=== PATIENT | female | born 1950 | race Caucasian/White ===

== ENCOUNTER → 2019-12-16 | Outpatient (CLI) | payer MEDICARE, OTHER ==
--- NOTE | 2019-12-16 13:54 | RAD ---
Examination: Right digital diagnostic mammogram. INDICATION: Screening recall for right breast calcifications. COMPARISON: Mammograms of 08/31/2015, 11/28/2018 and 12/05/2019 TECHNIQUE: Magnification right CC and ML views as well as a full-field right ML view were obtained with 2-D technique and reviewed with computer-aided detection. FINDINGS: Scattered fibroglandular densities. Diffuse, scattered coarse calcifications are present. The cluster of calcifications in the posterior slightly lateral right breast on magnification views appear to be coarse and dystrophic in morphology. There best seen on the magnification CC view. No associated mass or obvious architectural distortion. IMPRESSION: Probably benign calcifications in the right breast. Recommend right diagnostic mammogram in 6 months. BI-RADS Category 3 Probably benign Patient entered into a reminder system with target due date for next mammogram.
== END | disposition home or self-care (01) ==
LOC: MAMMO 12:54
PROVIDERS: ATTEND Family Medicine
DX: R92.1 Mammographic calcification found on diagnostic imaging of breast (principal)
CPT/HCPCS: 77065

== ENCOUNTER 2022-02-13 14:04 | Emergency (ER) | payer MEDICARE, OTHER ==
[~2022-02-13] VITALS: Ht 149.9 cm; Wt 56.3 kg
[2022-02-13] MEDS ORDERED: ACETAMINOPHEN 325 MG TABLET PO ONE (15:30)
[2022-02-13] MEDS ORDERED: IV NORMAL SALINE 1,000ML 1,000 ML IV SCH (15:30)
--- NOTE | 2022-02-13 15:58 | RAD ---
AP chest. HISTORY: Fever AP view was taken of the chest. Lungs are free of infiltrates. Heart is normal in size. There is no p leural effusion. IMPRESSION: 1. No acute infiltrates. Electronically signed by: Tre Vergara MD (02/13/2022 3:55 PM) [facility]
[2022-02-13 16:23] LABS: CLARITY,URINE CLOUDY; COLOR,URINE YELLOW; GLUCOSE,URINE NEG (NEG); NITRITE,URINE POS (NEG); UROBILINOGEN,URINE 0.2 mg/dL (0.2 mg/dL)
[2022-02-13 16:24] LABS: BACTERIA,URINE MOD /HPF (0-FEW); WBC,URINE TNTC /HPF (0-4)
[2022-02-13 16:48] LABS: BASO # 0.1 x10^3/uL (0.0-0.2); BASO % 0 % (0-3); EOS % 0 % (0-3); HEMATOCRIT 39.1 % (36.0-47.0); HEMOGLOBIN 13.2 g/dL (12.0-15.5); LYMPH # 2.1 x10^3/uL (1.0-4.8); LYMPH % 17 % (24-48); MEAN CORPUSCULAR HEMOGLOBIN 31 pg (25-35); MEAN CORPUSCULAR HGB CONC 34 g/dL (31-37); MEAN CORPUSCULAR VOLUME 93 fL (79-100); MONO # 1.4 x10^3/uL (0.0-1.1); MONO % 11 % (0-9); NEUT % 72 % (31-73); PLATELET COUNT 307 x10^3/uL (140-400); RED CELL DISTRIBUTION WIDTH 13.1 % (11.5-14.5); WHITE BLOOD COUNT 12.5 x10^3/uL (4.0-11.0)
[2022-02-13 16:53] LABS: CALCIUM 9.2 mg/dL (8.5-10.1); CREATININE 0.9 mg/dL (0.6-1.0); GFR 61.7; POTASSIUM 3.6 mmol/L (3.5-5.1)
[2022-02-13] MEDS ORDERED: cefTRIAXone SODIUM 1 GM VIAL ONE (17:02)
[2022-02-13 17:05] LABS: INFLUENZA A PATIENT NEGATIVE (NEGATIVE); INFLUENZA B PATIENT NEGATIVE (NEGATIVE)
[2022-02-13 17:08] LABS: ALBUMIN/GLOBULIN RATIO 0.7 (1.0-1.7); TOTAL BILIRUBIN 0.6 mg/dL (0.2-1.0); TOTAL PROTEIN 7.6 g/dL (6.4-8.2)
[2022-02-13] MEDS ORDERED: CEFP200T PO (17:39)
--- NOTE | 2022-02-13 17:39 | PHYS DOC ---
Past History Past Medical History: No Pertinent History Adult General Chief Complaint Chief Complaint: FEVER HPI HPI Patient is a 71year old female who presents with complaint of fever, headaches, and chills. The patient states that her symptoms have been present over the past 3 to 4 days. States that she started getting elevated fever and chills but denies any significant coughing or shortness of breath. The patient states she went to urgent care where she underwent COVID and influenza testing 2 days ago and this was found to be negative. She had continued fever after this encounter but notes that she has not had any chest pain, abdominal pain, dysuria, diarrhea, or vomiting. Patient states that she purchased a home urinalysis kit to test her urine and states that it did come back positive for leukoesterase. Due to continued symptoms she came to the emergency department for further evaluation. Denies any significant past medical history. Review of Systems Review of Systems Constitutional: Fever, chills [] Eyes: Denies change in visual acuity, redness, or eye pain [] HENT: Denies nasal congestion or sore throat [] Respiratory: Denies cough or shortness of breath [] Cardiovascular: Denies chest pain or edema [] GI: Denies abdominal pain, nausea, vomiting, bloody stools or diarrhea [] : Denies dysuria or hematuria [] Musculoskeletal: Denies back pain or joint pain [] Integument: Denies rash or skin lesions [] Neurologic: Headache, denies focal weakness or sensory changes [] All other systems were reviewed and found to be within normal limits, except as documented in this note. Current Medications Current Medications Current Medications Medications (Trade) Dose Ordered Sig/Elicia Start Time Stop Time Status Last Admin Dose Admin Acetaminophen (Tylenol) 650 mg 1X ONCE 02/13/22 15:30 02/13/22 15:35 DC 02/13/22 15:45 650 MG Ceftriaxone Sodium 1 gm/ Sodium Chloride 50 ml @ 100 mls/hr 1X ONCE 02/13/22 16:45 02/13/22 17:14 DC 02/13/22 17:06 100 MLS/HR Ceftriaxone Sodium (Rocephin) 1 gm STK-MED ONCE 02/13/22 17:02 02/13/22 17:02 DC Sodium Chloride 1,000 ml @ 1,000 mls/hr Q1H 02/13/22 15:30 02/13/22 16:29 DC 02/13/22 15:46 1,000 MLS/HR Allergies Allergies Allergies Coded Allergies Type Severity Reaction Last Updated Verified Sulfa (Sulfonamide Antibiotics) Allergy Unknown 02/13/22 Yes Physical Exam Physical Exam Constitutional: Alert, febrile, no acute distress. [] HENT: Normocephalic, atraumatic, bilateral external ears normal, oropharynx moist, no oral exudates, nose normal. [] Eyes: PERRLA, EOMI, conjunctiva normal, no discharge. [] Neck: Normal range of motion, no tenderness, supple, no stridor. [] Cardiovascular:Heart rate regular rhythm, no murmur [] Lungs & Thorax: Bilateral breath sounds clear to auscultation [] Abdomen: Bowel sounds normal, soft, no tenderness, no masses, no pulsatile masses. [] Skin: Warm, dry, no erythema, no rash. [] Back: No tenderness, no CVA tenderness. [] Extremities: No tenderness, no cyanosis, no clubbing, ROM intact, no edema. [] Neurologic: Alert and oriented X 3, normal motor function, normal sensory function, no focal deficits noted. [] Current Patient Data Vital Signs Temperature 101.8 F, blood pressure 147/81, heart rate 82, respirations 18, pulse oximetry 95% on room air Lab Results Laboratory Tests Test 02/13/22 15:25 02/13/22 16:00 02/13/22 16:09 Urine Collection Type Unknown Urine Color Yellow Urine Clarity Cloudy Urine pH 6.0 Urine Specific [place] 1.015 Urine Protein Trace (NEG-TRACE) Urine Glucose (UA) Neg mg/dL (NEG) Urine Ketones (Stick) Neg mg/dL (NEG) Urine Blood Mod (NEG) Urine Nitrite Pos (NEG) Urine Bilirubin Neg (NEG) Urine Urobilinogen Dipstick 0.2 mg/dL (0.2 mg/dL) Urine Leukocyte Esterase Small (NEG) Urine RBC 11-20 /HPF (0-2) Urine WBC Tntc /HPF (0-4) Urine Bacteria Mod /HPF (0-FEW) White Blood Count 12.5 x10^3/uL (4.0-11.0) H Red Blood Count 4.20 x10^6/uL (3.50-5.40) Hemoglobin 13.2 g/dL (12.0-15.5) Hematocrit 39.1 % (36.0-47.0) Mean Corpuscular Volume 93 fL (79-100) Mean Corpuscular Hemoglobin 31 pg (25-35) Mean Corpuscular Hemoglobin Concent 34 g/dL (31-37) Red Cell Distribution Width 13.1 % (11.5-14.5) Platelet Count 307 x10^3/uL (140-400) Neutrophils (%) (Auto) 72 % (31-73) Lymphocytes (%) (Auto) 17 % (24-48) L Monocytes (%) (Auto) 11 % (0-9) H Eosinophils (%) (Auto) 0 % (0-3) Basophils (%) (Auto) 0 % (0-3) Neutrophils # (Auto) 9.0 x10^3uL (1.8-7.7) H Lymphocytes # (Auto) 2.1 x10^3/uL (1.0-4.8) Monocytes # (Auto) 1.4 x10^3/uL (0.0-1.1) H Eosinophils # (Auto) 0.0 x10^3/uL (0.0-0.7) Basophils # (Auto) 0.1 x10^3/uL (0.0-0.2) Sodium Level 133 mmol/L (136-145) L Potassium Level 3.6 mmol/L (3.5-5.1) Chloride Level 96 mmol/L (98-107) L Carbon Dioxide Level 31 mmol/L (21-32) Anion Gap 6 (6-14) Blood Urea Nitrogen 16 mg/dL (7-20) Creatinine 0.9 mg/dL (0.6-1.0) Estimated GFR (Cockcroft-Gault) 61.7 BUN/Creatinine Ratio 18 (6-20) Glucose Level 97 mg/dL (70-99) Lactic Acid Level 1.1 mmol/L (0.4-2.0) Calcium Level 9.2 mg/dL (8.5-10.1) Total Bilirubin 0.6 mg/dL (0.2-1.0) Aspartate Amino Transferase (AST) 34 U/L (15-37) Alanine Aminotransferase (ALT) 68 U/L (14-59) H Alkaline Phosphatase 148 U/L (46-116) H Total Protein 7.6 g/dL (6.4-8.2) Albumin 3.0 g/dL (3.4-5.0) L Albumin/Globulin Ratio 0.7 (1.0-1.7) L Lipase 128 U/L (73-393) Influenza Type A (Rapid) Negative (NEGATIVE) Influenza Type B (Rapid) Negative (NEGATIVE) SARS-CoV-2 Antigen (Rapid) Negative (NEGATIVE) EKG EKG Not performed [] Radiology/Procedures Radiology/Procedures [address] [id number] IMAGING REPORT Signed PATIENT: ALEJANDRA RODRÍGUEZ ACCOUNT: [id number] : 1950 LOCATION: ER AGE: 71 SEX: F EXAM STATUS: REG ER ORD. PHYSICIAN: RORY BURRIS MD REASON: fever PROCEDURE: PORTABLE CHEST 1V AP chest. HISTORY: Fever AP view was taken of the chest. Lungs are free of infiltrates. Heart is normal in size. There is no pleural effusion. IMPRESSION: 1. No acute infiltrates. Electronically signed by: Tre Vergara MD (02/13/2022 3:55 PM) [facility] DICTATED AND SIGNED BY: TRE VERGARA MD DATE: 02/13/22 1555 CC: SRIDHAR LEROY DO; RORY BURRIS MD ~ [] Heart Score C/O Chest Pain: No Risk Factors: Risk Factors: DM, Current or recent (<one month) smoker, HTN, HLP, family history of CAD, obesity. Risk Scores: Risk Factors: DM, Current or recent (<one month) smoker, HTN, HLP, family history of CAD, obesity. Course & Med Decision Making Course & Med Decision Making Pertinent Labs and Imaging studies reviewed. (See chart for details) Patient started on IV fluids in the emergency department. Urinalysis reviewed and shows findings concerning for urinary tract infection. Given IV Rocephin. Lactic acid level found to be within normal limits. Patient currently does not meet severe sepsis criteria. After fluids and antibiotics, patient states that she feels better at this time. The patient is appropriate for discharge. Prescribed Vantin for 10-day course of treatment and recommend close follow-up with primary doctor in the next 3 days for reevaluation. Recommend return to the emergency department for any worsening symptoms. Patient voiced understanding and in agreement with treatment plan. [] Dragon Disclaimer Dragon Disclaimer This electronic medical record was generated, in whole or in part, using a voice recognition dictation system. Departure Departure: Impression: Primary Impression: Urinary tract infection Disposition: HOME / SELF CARE / HOMELESS Condition: IMPROVED Referrals: SRIDHAR LEROY DO (PCP) Patient Instructions: Urinary Tract Infection Additional Instructions: Follow-up with your primary care provider in the next 2 to 3 days for reevaluation. Return to the emergency department for any worsening symptoms. Scripts Cefpodoxime Proxetil (CEFPODOXIME PROXETIL) 200 Mg Tablet 1 TAB PO BID, #20 TAB Prov: RORY BURRIS MD 02/13/22 Problem Qualifiers Primary Impression: Urinary tract infection Urinary tract infection type: site unspecified Hematuria presence: without hematuria Qualified Codes: N39.0 - Urinary tract infection, site not specified RORY BURRIS MD February 13, 2022 17:39
[2022-02-13 17:43] VITALS: BP 115/62
== END 2022-02-13 18:10 | disposition home or self-care (01) ==
LOC: ER 14:04
DX: N39.0 Urinary tract infection, site not specified (principal); Z20.822 Contact with and (suspected) exposure to COVID-19; Z88.2 Allergy status to sulfonamides
CPT/HCPCS: 71045; 80053; 81001; 83605; 83690; 85025; 87040; 87077; 87086; 87186; 87428; 96361; 96365; 99285; J0696; J7030